=== PATIENT | male | born 1960 | race African-American/Black ===

== ENCOUNTER 2016-11-27 13:04 | Emergency (ER) | payer SELFPAY ==
[~2016-11-27] VITALS: Ht 185.4 cm; Wt 66.9 kg
[~2016-11-27 13:04] MED LIST: AUGMENTIN875 MG PO; NOHOMEMEDS; PERCOCET 5/31 TABLET PO
[2016-11-27] MEDS ORDERED: ULTRAM50 MG PO (14:03)
[2016-11-27 14:27] VITALS: BP 123/100
== END 2016-11-27 14:27 | disposition home or self-care (01) ==
LOC: EME 13:04 → RME 13:04
DX: S86.911A Strain of unspecified muscle(s) and tendon(s) at lower leg level, right leg, initial encounter (principal); X50.1XXA Overexertion from prolonged static or awkward postures, initial encounter; Y93.39 Activity, other involving climbing, rappelling and jumping off; Z93.3 Colostomy status
CPT/HCPCS: 99281; 99284